=== PATIENT | male | born 1950 | race Caucasian/White ===

== ENCOUNTER → 2022-02-15 10:33 | Outpatient (BNVA) | payer MEDICARE, SELFPAY | PROVIDERS: Family Provider Family Medicine; PCP Family Medicine; Visit Provider Family Medicine | DX: M19.90 Unspecified osteoarthritis, unspecified site (principal); F43.9 Reaction to severe stress, unspecified; G89.29 Other chronic pain; Z13.6 Encounter for screening for cardiovascular disorders; R00.0 Tachycardia, unspecified | CPT/HCPCS: 80053; 80061 ==

== ENCOUNTER → 2022-04-23 10:00 | Outpatient (BNVA) | payer MEDICARE, SELFPAY | PROVIDERS: Family Provider Family Medicine; PCP Family Medicine; Visit Provider Nurse Practitioner Family | DX: R50.9 Fever, unspecified (principal); R05.3 Chronic cough; J22 Unspecified acute lower respiratory infection; I70.0 Atherosclerosis of aorta | CPT/HCPCS: 71046; 80053; 85025; 87400 ==

== ENCOUNTER 2023-03-01 09:31 | Emergency (ER) | payer MEDICARE, SELFPAY ==
--- NOTE | 2023-03-01 09:34 | W.ED.SKABFB ---
HPI - Skin/Abscess/Foreign Bdy General: Chief complaint: Skin/Abscess/Foreign Body Stated complaint: rash, eye irritation, possible shingles Time Seen by Provider: 03/01/23 09:34 Source: patient Mode of arrival: ambulatory History of Present Illness: 72-year-old male reports rash that began within the last 48 hours mild tearing of the eye vision has been normal. Has a vesicular rash across the forehead. No cough no fever no sweats chills. MD complaint: rash Onset (ago): hour(s) (~48) Location: face Relieving factors: none Exacerbating factors: none Associated symptoms: Deny arthralgias, chills, cough, fever(s), itching, myalgias, nausea, rigidity, short of breath or vomiting Review of Systems Const: Denies: fever(s) or chills Eyes: Reports: eye discharge (Watery) and eye redness (Mild); Denies: change in vision, blurry vision, photophobia or eye discomfort ENMT: Denies: throat pain, ear or mastoid pain, ear discharge, nasal discharge or nasal congestion Card: Denies: chest pain Resp: Denies: dyspnea GI: Denies: abdominal pain, nausea or vomiting : Denies: dysuria, urinary frequency or urinary urgency Musc: Denies: neck pain or back pain Skin/Breast: Denies: rash PFSH ED PFSH: Medical History Tachycardia Family History Mother CAD (coronary artery disease) Diabetes Brother Cancer Other Bleeding disorder Denies family history of Suicide Anesthesia complication Stroke Social History Smoking and tobacco/nicotine status: never used tobacco/nicotine (Smokeless) Second hand smoke exposure: No Alcohol intake: never Substance/Drug Use: never Adopted: No Caregiver/support person: No Lives independently: Yes Household members: spouse Housing: House Marital status: Number of children: 2 service: No Current occupational status: employed Current occupational exposures/hazards: No Do you think of yourself as: Straight/Heterosexual Current gender identity: Male Physical Exam Const: GENERAL APPEARANCE: cooperative and comfortable ORIENTATION/CONSCIOUSNESS: Yes awake, Yes oriented to person, Yes oriented to place and Yes oriented to time HENMT: COMMON NORMALS: normocephalic, atraumatic and hearing grossly normal bilaterally HEAD & SCALP: normocephalic and atraumatic Eye: OTHER: No chemosis right eye very mild conjunctival redness. Resp: COMMON NORMALS: normal respiratory effort, No retractions, No use of accessory muscles and clear to auscultation bilaterally AUSCULTATION: clear to auscultation bilaterally Cardio: COMMON NORMALS: regular rate, regular rhythm and No murmurs present (Cardio) RATE: regular rate RHYTHM: regular rhythm Extremity: COMMON NORMALS: normal to inspection, capillary refill normal, no clubbing, cyanosis or edema, no calf tenderness and no pedal edema Neuro: SENSORIUM/ORIENTATION: Yes oriented to person, Yes oriented to place and Yes oriented to time Skin: OTHER: Vesicular rash in the ophthalmic distribution of the right facial nerve Course Vital Signs: Vital signs: Vital Signs Temperature 98.7 F 03/01/23 09:43 Pulse Rate 78 03/01/23 10:17 Respiratory Rate 18 03/01/23 10:17 Blood Pressure 167/78 03/01/23 09:43 Pulse Oximetry 98 03/01/23 10:17 MDM - Skin/Abscess/Foreign Bdy Medicial Decision Making Valtrex 1 g twice daily 10 days reviewed usual course of varicella-zoster follow-up with primary care if has any change in vision return Medical Records I reviewed the patient's medical records. Lab Data I reviewed the patient's lab results. No radiology studies performed this visit Discharge Plan Discharge Patient Disposition: Home Clinical Impression: Varicella zoster Condition: Stable Prescriptions: New Valtrex 1 gram tablet 1,000 mg PO BID 10 Days Qty: 20 0RF hydrocodone-acetaminophen 5-325 mg tablet 1 tab PO Q6H PRN (Reason: pain) Qty: 20 0RF No Action gabapentin 300 mg capsule 300 mg PO TID alprazolam 0.25 mg tablet 0.25 mg PO TID PRN omega-3 fatty acids [Fish Oil Concentrate] 1,000 mg capsule 1,000 mg PO DAILY doxycycline hyclate 100 mg capsule 100 mg PO BID Qty: 20 0RF Rx Instructions: for infection prednisone 20 mg tablet 20 mg PO DAILY Qty: 10 0RF Rx Instructions: for lung inflammation levofloxacin 500 mg tablet 500 mg PO DAILY Qty: 7 0RF tamsulosin 0.4 mg capsule 0.4 mg PO DAILY Qty: 90 3RF sotalol 80 mg tablet 80 mg PO BID Qty: 180 3RF Rx Instructions: take 1 tablet by mouth in the morning and 1/2 tablet by mouth in the evening. temazepam 15 mg capsule 15 mg PO .qhs Qty: 30 5RF atorvastatin 10 mg tablet See Rx Instructions .ROUTE .COMPLEX Qty: 90 3RF Dose Instruction: TAKE ONE TABLET BY MOUTH DAILY FOR CHOLESTEROL Rx Instructions: TAKE ONE TABLET BY MOUTH DAILY FOR CHOLESTEROL hydrocodone-acetaminophen 10-325 mg tablet 1 tab PO Q6H PRN (Reason: pain) 30 Days Qty: 120 0RF Discharge Orders: Discharge ED (Routine); Ordered 03/01/23 Ordered By: Darío Miles Referrals: Jeovany Kramer DO [Primary Care Provider] - Discharge Diet: Usual diet Discharge Activity: Increase activity as tolerated Patient Instructions: Shingles (ED), Opioid Safety, Pain Management Activity Restrictions/Additional Instructions: Follow-up with your doctor and with ophthalmology next week. Return if you have significant difficulty with vision in the right eye Coding Level of Care Code ED Mammography Technologist for Quinton Salgado
[2023-03-01 09:40] VITALS: BMI 20.7
[2023-03-01 09:43] VITALS: BP 167/78; PULSE 78; RESP 18; TEMP 37.1; O2SAT 97
[2023-03-01 10:17] VITALS: PULSE 78; RESP 18; O2SAT 98
== END 2023-03-01 10:23 | disposition home or self-care (01) ==
PROVIDERS: Emergency Provider Family Medicine; PCP Family Medicine
DX: B01.9 Varicella without complication (principal)
CPT/HCPCS: 99283